=== PATIENT | male | born 1985 ===

== ENCOUNTER 2021-04-01 12:41 | Emergency (ER) | payer SELFPAY ==
--- NOTE | 2021-04-01 12:45 | Event Note ---
ED Screening Note ED Screening Note: hx of DM, has been out of his meds for 3 months he is supposed to be on metformin 500 BID +generalized weakness, nausea no vomiting no diarrhea no allergies to meds accucheck is 346 This initial assessment/diagnostic orders/clinical plan/treatment(s) is/are subject to change based on patients health status, clinical progression and re- assessment by fellow clinical providers in the ED. Further treatment and workup at subsequent clinical providers discretion. Patient/guardian urged not to elope from the ED as their condition may be serious if not clinically assessed and managed. Initial orders include: labs, ua
--- NOTE | 2021-04-01 13:37 | XRay Report ---
XR chest routine 2V INDICATION / CLINICAL INFORMATION: cough. COMPARISON: None available. FINDINGS: SUPPORT DEVICES: None. HEART /PULMONARY VASCULATURE: No significant abnormality. LUNGS / PLEURA: Very mild patchy bibasilar airspace opacities are present. No sizable pleural effusio n. No pneumothorax. ADDITIONAL FINDINGS: No significant additional findings. IMPRESSION: Bibasilar pulmonary opacities, suspicious for developing atypical pneumonia. Signer Name: Diogenes France MD Signed: 04/01/2021 1:33 PM Workstation Name: [id number]
[2021-04-01 13:41] LABS: Basophils % (Auto) 0.1 % (0.0-1.8); Eosinophils % (Auto) 0.1 % (0.0-4.3); Hematocrit 46.7 % (35.5-45.6); Hemoglobin 15.6 gm/dl (11.8-15.2); Lymphocytes # (Auto) 0.9 K/mm3 (1.2-5.4); Lymphocytes % (Auto) 33.7 % (13.4-35.0); Mean Corpuscular HGB Conc 33 % (32-34); Mean Corpuscular Volume 83 fl (84-94); Monocytes # (Auto) 0.2 K/mm3 (0.0-0.8); Monocytes % (Auto) 6.7 % (0.0-7.3); Platelet Count 156 K/mm3 (140-440); Red Blood Count 5.65 M/mm3 (3.65-5.03); Red Cell Distribution Width 12.4 % (13.2-15.2)
[2021-04-01 13:43] LABS: Bilirubin,Urine NEG (Negative); Blood,Urine NEG (Negative); Color,Urine Yellow (Yellow); Mucus,Urine FEW /HPF; RBC,Urine < 1.0 /HPF (0.0-6.0); Urobilinogen,Urine < 2.0 mg/dL (<2.0)
[2021-04-01] MEDS ORDERED: SODIUM CHLORIDE 0.9% 1000 ML 1,000 ML IV ONE (14:01)
[2021-04-01 14:07] LABS: Alanine Aminotransferase 53 units/L (7-56); Albumin 4.2 g/dL (3.9-5); BUN/Creatinine Ratio 9; Blood Urea Nitrogen 7 mg/dL (9-20); Calcium 8.7 mg/dL (8.4-10.2); Hemolysis Index 28
[2021-04-02] MEDS ORDERED: cefTRIAXone/NS 1 GM/50 ML 1 GM/50 ML BAG IV ONE (00:03)
[2021-04-02] MEDS ORDERED: ONDANSETRON 4 MG/2 ML INJ IV ONE (00:03)
[2021-04-02] MEDS ORDERED: AZITHROMYCIN 250 MG TAB PO ONE (00:03)
[2021-04-02] MEDS ORDERED: dexAMETHasone 20 MG/5 ML VIAL IV ONE (00:04)
--- NOTE | 2021-04-02 01:58 | Emergency Department Report ---
ED General Adult HPI - General Chief complaint: Hyperglycemia Stated complaint: OFF DIABETES MEDS FOR 3 MONTHS Time Seen by Provider: 04/02/21 00:03 Source: patient Mode of arrival: Ambulatory Limitations: No Limitations - History of Present Illness Initial comments: pt is a 35 y/o male with hx of DM, has been out of his meds for 3 months , he is supposed to be on metformin 500 BID , states +generalized weakness, nausea ,no vomiting ,no diarrhea, no allergies to meds, accucheck is 346, Now with cough productive yellow green for past 2 days. Severity scale (0 -10): 0 - Related Data Previous Rx's Medication Instructions Recorded Last Taken Type Albuterol Mdi (or & Nicu Only) 2 puff IH QID PRN #8.5 gram 04/02/21 Unknown Rx [ProAir HFA Inhaler] Amoxicillin/Potassium Clav 1 each PO BID 7 Days #14 tab 04/02/21 Unknown Rx [Augmentin 875-125 Tablet] Azithromycin 500 mg PO DAILY #5 04/02/21 Unknown Rx dexAMETHasone [Decadron] 4 mg PO Q8H 5 Days #15 tablet 04/02/21 Unknown Rx metFORMIN [Glucophage] 500 mg PO BID #60 04/02/21 Unknown Rx Allergies Allergy/AdvReac Type Severity Reaction Status Date / Time No Known Allergies Allergy Unverified 04/01/21 12:47 ED Review of Systems ROS: Stated complaint: OFF DIABETES MEDS FOR 3 MONTHS Other details as noted in HPI Constitutional: malaise. denies: chills, fever Eyes: denies: eye pain, eye discharge, vision change ENT: denies: ear pain, throat pain Respiratory: denies: cough, shortness of breath, wheezing Cardiovascular: denies: chest pain, palpitations Endocrine: no symptoms reported Gastrointestinal: nausea, diarrhea. denies: vomiting, constipation, melena Genitourinary: denies: urgency, dysuria, frequency, hematuria Musculoskeletal: back pain. denies: joint swelling, arthralgia Skin: denies: rash, lesions Neurological: denies: headache, weakness, paresthesias, vertigo Psychiatric: denies: anxiety, depression Hematological/Lymphatic: denies: easy bleeding, easy bruising ED Past Medical Hx - Past Medical History Previous Medical History?: Yes Hx Diabetes: Yes - Medications Home Medications: Home Medications Medication Instructions Recorded Confirmed Last Taken Type Albuterol Mdi (or & Nicu Only) 2 puff IH QID PRN #8.5 gram 04/02/21 Unknown Rx [ProAir HFA Inhaler] Amoxicillin/Potassium Clav 1 each PO BID 7 Days #14 tab 04/02/21 Unknown Rx [Augmentin 875-125 Tablet] Azithromycin 500 mg PO DAILY #5 04/02/21 Unknown Rx dexAMETHasone [Decadron] 4 mg PO Q8H 5 Days #15 tablet 04/02/21 Unknown Rx metFORMIN [Glucophage] 500 mg PO BID #60 04/02/21 Unknown Rx ED Physical Exam - General Limitations: No Limitations General appearance: alert, in no apparent distress - Head Head exam: Present: atraumatic, normocephalic - Eye Eye exam: Present: normal appearance, EOMI Pupils: Present: normal accommodation - ENT ENT exam: Present: mucous membranes moist - Neck Neck exam: Present: normal inspection, full ROM. Absent: tenderness - Respiratory Respiratory exam: Present: normal lung sounds bilaterally. Absent: respiratory distress, wheezes, rales, rhonchi, stridor, chest wall tenderness - Cardiovascular Cardiovascular Exam: Present: regular rate, normal rhythm, normal heart sounds. Absent: systolic murmur, diastolic murmur, rubs, gallop - GI/Abdominal GI/Abdominal exam: Present: soft, normal bowel sounds. Absent: distended, tenderness, guarding, rebound, rigid, bruit, hernia - Rectal Rectal exam: Present: deferred - Extremities Exam Extremities exam: Present: normal inspection, full ROM, normal capillary refill - Back Exam Back exam: Present: normal inspection, full ROM. Absent: CVA tenderness (R), CVA tenderness (L), rash noted - Neurological Exam Neurological exam: Present: alert, oriented X3, CN II-XII intact - Expanded Neurological Exam Expanded Patient oriented to: Present: person, place, time Speech: Present: fluid speech Motor strength exam: RUE: 5, LUE: 5, RLE: 5, LLE: 5 Best Eye Response (Harmony): (4) open spontaneously Best Motor Response (Harmony): (6) obeys commands Best Verbal Response (Harmony): (5) oriented Harmony Total: 15 - Psychiatric Psychiatric exam: Present: normal affect, normal mood - Skin Skin exam: Present: warm, dry, intact, normal color. Absent: rash ED Course Vital Signs 04/02/21 01:41 Temperature 98.7 F Pulse Rate 79 Respiratory 14 Rate Blood Pressure 107/69 [Left] O2 Sat by Pulse 95 Oximetry ED Medical Decision Making - Lab Data Result diagrams: 04/01/21 12:47 04/01/21 12:47 Labs 04/01/21 04/01/21 04/01/21 12:43 12:47 12:47 WBC 2.7 L RBC 5.65 H Hgb 15.6 H Hct 46.7 H MCV 83 L MCH 28 MCHC 33 RDW 12.4 L Plt Count 156 Lymph % (Auto) 33.7 [place] % (Auto) 6.7 Eos % (Auto) 0.1 Baso % (Auto) 0.1 Lymph # (Auto) 0.[address] [place] # (Auto) 0.2 Eos # (Auto) 0.0 Baso # (Auto) 0.0 Seg Neutrophils % 59.4 Seg Neutrophils # 1.6 L VBG pH Sodium 135 L Potassium 4.5 Chloride 93.8 L Carbon Dioxide 25 Anion Gap 21 BUN 7 L Creatinine 0.8 Estimated GFR > 60 BUN/Creatinine Ratio 9 Glucose 387 H POC Glucose 346 H Calcium 8.7 Total Bilirubin 0.50 AST 44 H ALT 53 Alkaline Phosphatase 109 Total Protein 7.6 Albumin 4.2 Albumin/Globulin Ratio 1.2 Urine Color Urine Turbidity Urine pH Ur Specific [place] Urine Protein Urine Glucose (UA) Urine Ketones Urine Blood Urine Nitrite Urine Bilirubin Urine Urobilinogen Ur Leukocyte Esterase Urine WBC (Auto) Urine RBC (Auto) Urine Mucus 04/01/21 04/01/21 12:47 Unknown WBC RBC Hgb Hct MCV MCH MCHC RDW Plt Count Lymph % (Auto) [place] % (Auto) Eos % (Auto) Baso % (Auto) Lymph # (Auto) [place] # (Auto) Eos # (Auto) Baso # (Auto) Seg Neutrophils % Seg Neutrophils # VBG pH 7.303 L Sodium Potassium Chloride Carbon Dioxide Anion Gap BUN Creatinine Estimated GFR BUN/Creatinine Ratio Glucose POC Glucose Calcium Total Bilirubin AST ALT Alkaline Phosphatase Total Protein Albumin Albumin/Globulin Ratio Urine Color Yellow Urine Turbidity Clear Urine pH 6.0 Ur Specific [place] 1.040 H Urine Protein 30 mg/dl Urine Glucose (UA) >=500 Urine Ketones 20 Urine Blood Neg Urine Nitrite Neg Urine Bilirubin Neg Urine Urobilinogen < 2.0 Ur Leukocyte Esterase Neg Urine WBC (Auto) 2.0 Urine RBC (Auto) < 1.0 Urine Mucus Few - Radiology Data Radiology results: report reviewed, image reviewed XR chest routine 2V INDICATION / CLINICAL INFORMATION: cough. COMPARISON: None available. FINDINGS: SUPPORT DEVICES: None. HEART /PULMONARY VASCULATURE: No significant abnormality. LUNGS / PLEURA: Very mild patchy bibasilar airspace opacities are present. No sizable pleural effusion. No pneumothorax. ADDITIONAL FINDINGS: No significant additional findings. IMPRESSION: Bibasilar pulmonary opacities, suspicious for developing atypical pneumonia. Signer Name: Amanda Whitaker MD Signed: 04/01/2021 1:33 PM Workstation Name: [id number] Transcribed By: BILL Dictated By: AMANDA WHITAKER MD Electronically Authenticated By: AMANDA WHITAKER MD Signed Date/Time: 04/01/21 4783 - Medical Decision Making Chest x-ray with bilateral basilar infiltrate, repeat blood sugar 201. Patient states symptoms improved with medication given in ED. Patient is now tolerating p.o. intake. Plan DC to home, refilled metformin, antibiotics, inhaler, steroids. Patient will quarantine per COVID-19 protocol, follow-up with primary care doctor will call to set up appointment for tomorrow for 7 to 10 days. Patient will return to ED if symptoms worsen. Patient verbalizes agreement and understanding with discharge plan. Patient DC'd home in stable condition at this time. Critical care attestation.: If time is entered above; I have spent that time in minutes in the direct care of this critically ill patient, excluding procedure time. ED Disposition Clinical Impression: Hyperglycemia, Person under investigation for COVID-19 CAP (community acquired pneumonia) Qualifiers: Laterality: unspecified laterality Qualified Code(s): J18.9 - Pneumonia, unspecified organism Nausea and vomiting Qualifiers: Vomiting type: unspecified Qualified Code(s): R11.2 - Nausea with vomiting, unspecified Disposition: 01 HOME / SELF CARE / HOMELESS Is pt being admited?: No Does the pt Need Aspirin: No Condition: Stable Instructions: Bacterial Pneumonia (ED), Community-Acquired Pneumonia, Adult, [id number], Nausea and Vomiting, Adult, Hyperglycemia, Blood Glucose Monitoring, Adult Additional Instructions: Take medications as prescribed, follow-up with your primary care doctor 2 to 3 days. Return to emergency department if your symptoms worsen Prescriptions: Amoxicillin/Potassium Clav [Augmentin 875-125 Tablet] 1 each PO BID 7 Days #14 tab Azithromycin 500 mg PO DAILY #5 dexAMETHasone [Decadron] 4 mg PO Q8H 5 Days #15 tablet metFORMIN [Glucophage] 500 mg PO BID #60 Albuterol Mdi (or & Nicu Only) [ProAir HFA Inhaler] 2 puff IH QID PRN #8.5 gram PRN Reason: Shortness Of Breath Referrals: ANDRZEJ TOMPKINS MD [Staff Physician] - 3-5 Days Forms: Work/School Release Form(ED) Time of Disposition: 02:14
[2021-04-02] MEDS ORDERED: SODIUM CHLORIDE 0.9% 1000 ML 1,000 ML ONE (03:58)
[2021-04-02] MEDS ORDERED: SODIUM CHLORIDE 0.9% 1000 ML 1,000 ML IV ONE (05:04)
[2021-04-02 05:44] VITALS: BP 140/82
== END 2021-04-02 06:21 | disposition home or self-care (01) ==
LOC: ED 12:41
DX: E11.65 Type 2 diabetes mellitus with hyperglycemia (principal); Z20.822 Contact with and (suspected) exposure to COVID-19
CPT/HCPCS: 36415; 71046; 80053; 81001; 82805; 82962; 85025; 96365; 96366; 96375; 99284; J0696; J1100; J2405; J7030; Q0162